=== PATIENT | female | born 1980 | race Caucasian/White ===

== ENCOUNTER 2020-07-06 08:34 | Outpatient (REF) | payer OTHER, SELFPAY ==
[2020-07-06 11:03] LABS: MANUAL DIFF FLAG NO
[2020-07-06 11:15] LABS: Basophils Percent Auto 0.7 % (0-2); Eosinophils Absolute Auto 0.1 X10*3/uL (0.0-0.4); Eosinophils Percent Auto 1.5 % (0-4); Hematocrit 45.1 % (37-47); Hemoglobin 14.6 g/dl (12.0-16.0); Imm Gran Abs Auto 0.01 X10*3/uL (0.00-0.03); Imm Gran Pct Auto 0.2 % (0.0-0.4); Lymphocytes Absolute Auto 1.6 X10*3/uL (1.2-4.9); Lymphocytes Percent Auto 35.3 % (20-40); Mean Corpuscular HGB Conc 32.4 g/dl (31.0-35.0); Mean Corpuscular Hemoglobin 30.6 pg (27.0-33.0); Mean Corpuscular Volume 94.5 fL (80-98); Mean Platelet Volume 11.4 fL (9.4-12.3); Monocytes Absolute Auto 0.4 X10*3/uL (0.1-1.2); Monocytes Percent Auto 8.3 % (2-11); Neutrophils Absolute Auto 2.5 X10*3/uL (2.0-8.3); Platelet Count 234 X10*3/uL (160-400); Red Blood Count 4.77 X10*6/uL (4.20-5.50); Red Cell Distribution Width 11.9 % (11.0-16.0); White Blood Count 4.6 X10*3/uL (4.8-10.8)
[2020-07-06 11:38] LABS: Alanine Aminotransferase 41 U/L (0-31); Albumin Level 4.4 g/dL (3.5-5.0); Alkaline Phosphatase 95 U/L (39-117); Aspartate Amino Transferase 10 U/L (5-31); Bilirubin Total 0.5 mg/dL (0.0-1.0); Blood Urea Nitrogen 14 mg/dL (9-16); Calcium 8.8 mg/dL (8.4-10.2); Cholesterol 175 mg/dL; Estimated Glomerular Filt Rate > 60; Glucose Fasting 97 mg/dL (60-99); HDL Cholesterol 48 mg/dL; LDL Cholesterol Calculated 105 mg/dl; Total Protein 7.1 g/dL (6.5-8.0); Triglycerides 113 mg/dL
[2020-07-06 11:55] LABS: Anion Gap 10 (12-20); Carbon Dioxide 29 mmol/L (22-29); Chloride 107 mmol/L (96-108); Potassium 4.2 mmol/L (3.3-5.1); Sodium 142 mmol/L (135-145)
[2020-07-06 11:59] LABS: TSH reflex Free T4 1.25 uIU/mL (0.32-4.0); Vitamin D 25-OH Total 19.6 ng/mL (>30)
== END 2020-07-06 08:35 | disposition home or self-care (01) ==
LOC: HO.HMGCLDS 08:34
PROVIDERS: PCP Internal Medicine; Visit Provider Internal Medicine
DX: Z00.01 Encounter for general adult medical examination with abnormal findings (principal); E66.9 Obesity, unspecified
CPT/HCPCS: 36415; 80053; 80061; 82306; 84443; 85025

== ENCOUNTER 2020-07-17 14:45 | Outpatient (REF) | payer OTHER, SELFPAY ==
[2020-07-17 17:48] LABS: Thyroid Stimulating Hormone 0.71 uIU/mL (0.32-4.0)
[2020-07-18 09:02] LABS: DHEA Sulfate 226 mcg/dL (23-266)
[2020-07-23 12:12] LABS: Testosterone, Free 5.3 pg/mL (0.1-6.4); Testosterone, Total 26 ng/dL (2-45)
== END 2020-07-17 14:46 | disposition home or self-care (01) ==
LOC: HO.LAB 14:45
PROVIDERS: PCP Internal Medicine; Visit Provider Obstetrics & Gynecology
DX: Z01.419 Encounter for gynecological examination (general) (routine) without abnormal findings (principal); E28.2 Polycystic ovarian syndrome; F32.81 Premenstrual dysphoric disorder
CPT/HCPCS: 36415; 82627; 83498; 84402; 84403; 84443

== ENCOUNTER → 2020-07-31 11:34 | Outpatient (BNVA) | payer OTHER, SELFPAY | PROVIDERS: PCP Internal Medicine; Visit Provider Obstetrics & Gynecology ==

== ENCOUNTER 2020-08-14 12:25 | Outpatient (REF) | payer OTHER, SELFPAY ==
--- NOTE | ~2020-08-14 | XR_ITS ---
EXAMINATION: XR CHEST CLINICAL INFORMATION: Cough COMPARISON: Chest radiographs 03/03/2019, 01/16/2016 TECHNIQUE: 2 views of the chest were obtained. FINDINGS: The lungs are clear. There is no airspace consolidation or groundglass opacity. No hyperinflation. The costophrenic sulci are clear. The heart is normal in size. The hilar and mediastinal contours are unremarkable. No acute bony abnormality. XR/XR chest 2V IMPRESSION: Lungs clear.
== END 2020-08-14 12:26 | disposition home or self-care (01) ==
LOC: HO.HMGCX 12:25
PROVIDERS: PCP Internal Medicine; Visit Provider Nurse Practitioner Family
DX: R05 Cough (principal)
CPT/HCPCS: 71046

== ENCOUNTER 2020-09-18 11:11 | Outpatient (REF) | payer OTHER, SELFPAY ==
[2020-09-18 14:03] LABS: MANUAL DIFF FLAG NO
[2020-09-18 14:14] LABS: Basophils Percent Auto 0.7 % (0-2); Eosinophils Percent Auto 0.7 % (0-4); Hematocrit 46.7 % (37-47); Hemoglobin 14.9 g/dl (12.0-16.0); Imm Gran Abs Auto 0.02 X10*3/uL (0.00-0.03); Imm Gran Pct Auto 0.5 % (0.0-0.4); Lymphocytes Absolute Auto 1.2 X10*3/uL (1.2-4.9); Lymphocytes Percent Auto 26.1 % (20-40); Mean Corpuscular HGB Conc 31.9 g/dl (31.0-35.0); Mean Corpuscular Hemoglobin 30.4 pg (27.0-33.0); Mean Corpuscular Volume 95.3 fL (80-98); Mean Platelet Volume 11.2 fL (9.4-12.3); Monocytes Absolute Auto 0.3 X10*3/uL (0.1-1.2); Neutrophils Absolute Auto 2.9 X10*3/uL (2.0-8.3); Platelet Count 256 X10*3/uL (160-400); Red Cell Distribution Width 12.8 % (11.0-16.0); White Blood Count 4.4 X10*3/uL (4.8-10.8)
[2020-09-18 14:23] LABS: Anion Gap 12 (12-20); Blood Urea Nitrogen 14 mg/dL (9-16); Calcium 9.6 mg/dL (8.4-10.2); Carbon Dioxide 26 mmol/L (22-29); Chloride 106 mmol/L (96-108); Estimated Glomerular Filt Rate > 60; Glucose Random 89 mg/dL (60-115); Potassium 3.9 mmol/L (3.3-5.1); Sodium 140 mmol/L (135-145)
[2020-09-18 14:28] LABS: D Dimer < 200 NG/ML
== END 2020-09-18 11:12 | disposition home or self-care (01) ==
LOC: HO.HMGCLDS 11:11
PROVIDERS: PCP Internal Medicine; Visit Provider Nurse Practitioner Family
DX: R05 Cough (principal)
CPT/HCPCS: 36415; 80048; 85025; 85379

== ENCOUNTER 2021-01-02 16:33 | Outpatient (REF) | payer OTHER, SELFPAY | END 2021-01-02 16:34 | disposition home or self-care (01) | LOC: HO.LNP 16:33 | PROVIDERS: Visit Provider Internal Medicine | DX: J06.9 Acute upper respiratory infection, unspecified (principal); Z20.822 Contact with and (suspected) exposure to COVID-19 | CPT/HCPCS: U0003; U0005 ==

== ENCOUNTER 2021-03-05 09:47 | Outpatient (REF) | payer OTHER, SELFPAY ==
--- NOTE | ~2021-03-05 | XR_ITS ---
EXAMINATION: XR CHEST CLINICAL INFORMATION: Cough COMPARISON: Chest radiographs 08/14/2020, 03/03/2019 TECHNIQUE: 2 views of the chest were obtained. FINDINGS: The lungs are clear. There is no airspace consolidation or groundglass opacity or effusion. No hyperinflation. The heart is normal in size. The costophrenic sulci are well-defined. The hilar and mediastinal contours are normal. Bony structures are unremarkable. XR/XR chest 2V IMPRESSION: Unremarkable examination.
== END 2021-03-05 09:48 | disposition home or self-care (01) ==
LOC: HO.HMGCX 09:47
PROVIDERS: PCP Internal Medicine; Visit Provider Physician Assistant Medical
DX: J06.9 Acute upper respiratory infection, unspecified (principal); R05.9 Cough, unspecified
CPT/HCPCS: 71046

== ENCOUNTER 2021-03-05 11:43 | Outpatient (REF) | payer OTHER, SELFPAY ==
[2021-03-05 13:13] LABS: Influenza A PCR NEGATIVE (Negative); Influenza B PCR NEGATIVE (Negative); Resp Syncy Virus RNA Qual PCR NEGATIVE (Negative); SARS COV2 PCR INHOUSE NEGATIVE (Negative)
== END 2021-03-05 11:44 | disposition home or self-care (01) ==
LOC: HO.LNP 11:43
PROVIDERS: Physician Assistant Medical; Visit Provider Internal Medicine
DX: J06.9 Acute upper respiratory infection, unspecified (principal); R05.9 Cough, unspecified; Z20.822 Contact with and (suspected) exposure to COVID-19
CPT/HCPCS: 0241U

== ENCOUNTER 2021-04-15 08:53 | Outpatient (REF) | payer OTHER, SELFPAY ==
--- NOTE | 2021-04-15 11:24 | PFT_ITS ---
INDICATION: Cough. SPIROMETRY: The FEV1 to FVC of 88% with an FEV1 of 3.39 L, which is 105% predicted, an FVC of 3.87 L. She is 98% predicted no significant response to bronchodilators noted. Maximum voluntary ventilation 116% predicted. LUNG VOLUMES: Total lung capacity 84% predicted with an expiratory reserve volume of 99% predicted. DIFFUSION CAPACITY: DLCO 91% predicted. Flow volume loop appears to have a normal inspiratory and expiratory flow pattern without any dynamic obstructions. INTERPRETATION: No obstructive nor restrictive ventilatory defects identified. Normal maximum voluntary ventilation. No evidence of any response to bronchodilators noted. The patient does have a low normal total lung capacity, which is likely secondary to her elevated BMI. Although, occult interstitial lung conditions cannot be ruled out. Her diffusion capacity is within normal limits. If asthma is in the differential, methacholine challenge may be helpful in assessing for hyper-reactive airways, otherwise clinical correlation warranted. MD MOJGAN Vale/MODL / [id number]
== END 2021-04-15 08:54 | disposition home or self-care (01) ==
LOC: HO.RESP 08:53
PROVIDERS: PCP Internal Medicine; Visit Provider Internal Medicine
DX: R05.9 Cough, unspecified (principal); R09.82 Postnasal drip; Z91.09 Other allergy status, other than to drugs and biological substances
CPT/HCPCS: 94060; 94727; 94729

== ENCOUNTER 2022-04-02 12:08 | Outpatient (REF) | payer OTHER, SELFPAY ==
[2022-04-02 16:57] LABS: CT PCR NOT DETECTED (Not Detect.); NG PCR NOT DETECTED (Not Detect.)
[2022-04-05 22:04] LABS: HPV mRNA E6/E7 Not Detected (Not Detected)
== END 2022-04-02 12:09 | disposition home or self-care (01) ==
LOC: HO.LNP 12:08
PROVIDERS: Visit Provider Obstetrics & Gynecology
DX: N93.9 Abnormal uterine and vaginal bleeding, unspecified (principal); Z11.3 Encounter for screening for infections with a predominantly sexual mode of transmission
CPT/HCPCS: 87491; 87591; 87624; 88142

== ENCOUNTER 2022-04-03 09:40 | Outpatient (REF) | payer OTHER, SELFPAY ==
[2022-04-03 10:35] LABS: Hematocrit 49.1 % (37.0-47.0); Hemoglobin 16.1 g/dl (12.0-16.0); Mean Corpuscular HGB Conc 32.8 g/dl (31.0-35.0); Mean Corpuscular Hemoglobin 30.4 pg (27.0-33.0); Mean Corpuscular Volume 92.8 fL (80.0-98.0); Mean Platelet Volume 10.8 fL (9.4-12.3); Platelet Count 265 X10*3/uL (160-400); Red Blood Count 5.29 X10*6/uL (4.20-5.50); Red Cell Distribution Width 12.1 % (11.0-16.0); White Blood Count 6.1 X10*3/uL (4.8-10.8)
[2022-04-03 11:09] LABS: HCG Quantitative < 2 mIU/mL; TSH reflex Free T4 0.93 uIU/mL (0.32-4.0)
== END 2022-04-03 09:41 | disposition home or self-care (01) ==
LOC: HO.LAB 09:40
PROVIDERS: PCP Internal Medicine; Visit Provider Obstetrics & Gynecology
DX: N93.9 Abnormal uterine and vaginal bleeding, unspecified (principal)
CPT/HCPCS: 36415; 84443; 84702; 85027

== ENCOUNTER 2022-04-04 11:00 | Outpatient (REF) | payer OTHER, SELFPAY ==
--- NOTE | ~2022-04-04 | US_ITS ---
EXAMINATION: US PELVIS COMPLETE CLINICAL INFORMATION: Abnormal uterine bleeding. COMPARISON: None TECHNIQUE: Transabdominal and transvaginal imaging was performed. FINDINGS: The uterus is of normal size and echogenicity measuring 7.7 x 4.4 x 5.3 cm. A regular homogeneous endometrium is identified measuring 0.6 cm. Intrauterine device in place. Nabothian cysts in the cervix. Both ovaries are of normal size and echogenicity. The right measures 3.0 x 1.0 x 2.5 cm for a volume of 3.9 mL. The left measures 3.0 x 1.7 x 2.3 cm for a volume of 6.1 mL. There is no pelvic free fluid. US/US pelvic and transvaginal IMPRESSION: Intrauterine device in place. Otherwise unremarkable pelvic ultrasound.
== END 2022-04-04 11:01 | disposition home or self-care (01) ==
LOC: HO.US 11:00
PROVIDERS: PCP Internal Medicine; Visit Provider Obstetrics & Gynecology
DX: N93.9 Abnormal uterine and vaginal bleeding, unspecified (principal)
CPT/HCPCS: 76830; 76856

== ENCOUNTER 2022-05-20 11:25 | Outpatient (REF) | payer OTHER, SELFPAY | END 2022-05-20 11:26 | disposition home or self-care (01) | LOC: HO.LNP 11:25 | PROVIDERS: PCP Internal Medicine; Visit Provider Obstetrics & Gynecology | DX: N93.9 Abnormal uterine and vaginal bleeding, unspecified (principal) | CPT/HCPCS: 58100; 81025; 88305 ==

== ENCOUNTER → 2022-06-03 11:19 | Outpatient (BNVA) | payer OTHER, SELFPAY | PROVIDERS: Visit Provider Obstetrics & Gynecology | DX: Z13.89 Encounter for screening for other disorder (principal) ==

== ENCOUNTER 2022-06-20 10:09 | Outpatient (AMB) | payer OTHER, SELFPAY ==
--- NOTE | 2022-06-20 10:02 | A.OFFPC_ITS ---
Vital Signs 06/20/22 10:08 Height 5 ft 6 in Weight 247 lb BMI 39.9 BP 110/80 Blood Pressure Location Lt brachial Position Sitting Pulse 93 Pulse Source Pulse Oximeter Pulse Oximetry (%) 98 Oxygen Delivery Method Room Air Intake Visit Reasons: Swelling glands Intake Note: Pt is here today c/o swollen glands x4days Allergies strawberry [STRAWBERRY] Allergy (Mild, Verified 06/20/22 10:22) THROAT SCRATCHY AND FACE BLOTCHED Medication List - Last Reconciled 06/20/22 by Mery Abrams MD albuterol sulfate 90 mcg/actuation (ProAir HFA) 2 puffs inhalation Q4-6H PRN albuterol sulfate 90 mcg/actuation 2 puffs inhalation Q6H PRN benzonatate 100 mg PO TID PRN doxycycline hyclate 100 mg PO BID 7 days fluoxetine 10 mg PO DAILY fluticasone propionate 50 mcg/actuation 1 spray intranasal DAILY levonorgestrel (Mirena) intrauterine multivitamin 1 tab PO DAILY prednisone 40 mg (2 x 20 mg) PO DAILY 5 days spironolactone 100 mg PO DAILY Tobacco use date assessed: 06/20/22 [facility] Medical History (Updated 06/20/22 @ 10:31 by Mery Abrams MD) Environmental allergies Obesity PCOS (polycystic ovarian syndrome) PMDD (premenstrual dysphoric disorder) Postnasal drip Streptococcal sore throat Vitamin D deficiency Surgical History History of Hx of dilation and curettage Family History (Updated 06/20/22 @ 10:08 by Lin Jimenes [facility]) Father Diabetes mellitus Hypertension Lung cancer Mother Diabetes mellitus Hypertension Colon cancer Social History Housing: House Alcohol intake: current Patient Tobacco Use Status: Never used Tobacco e-Cigarette/Vaping Use: Never Used Current occupational status: employed Gender identity: Female Cognitive needs: No Hearing needs: No Vision needs: No Female Reproductive History Menstrual Age of Menarche: 14 Questionnaire Thrive Questionnaire Date Thrive assessed: 03/08/21 AUDIT C Alcohol Use Questionnaire (AUDIT-C) 1. How often do you have a drink containing alcohol?: Monthly or less 2. How many drinks containing alcohol do you have on a typical day when you are drinking?: 1 or 2 3. How often do you have six or more drinks on one occasion?: Never Total Score: 1 ZARA-7 AMB Questionnaire ZARA-7 Date ZARA - 7 assessed: 03/08/21 Source: Developed by Drs. Odell Du, Mary Palacios, Luis Saez and colleagues, with an educational reji from [employer]. Physical exam (Primary Care) Vital Signs: Last Vital Signs Pulse 93 06/20/22 10:08 BP 110/80 06/20/22 10:08 Pulse Ox 98 06/20/22 10:08 Oxygen Delivery Method Room Air 06/20/22 10:08 BMI result Body Mass Index 39.9 Tobacco/Smoking Status: Tobacco use Status Tobacco use date assessed 06/20/22 06/20/22 10:10 Patient Tobacco Use Status Never used Tobacco 06/20/22 10:04 e-Cigarette/Vaping Use Never Used 06/20/22 10:10 Thrive Assessment: Date of Thrive Assessment Date Thrive assessed 03/08/21 06/20/22 10:04 Results AMB Rapid Strep AMB Rapid Strep Positive Last Edit by Lin Jimenes CMA on 06/20/22 10:12 Results Reviewed Results Reviewed: Laboratory Last Values Strep Scn Rapid Clinic Positive 06/20/22 10:10 Assessment and Plan Assessment & Plan (1) Streptococcal sore throat: Code(s): J02.0 - Streptococcal pharyngitis Plan Started on prescription for penicillin V 500 mg per tablet to take 1 every 12 hours for 10 days. Advised patient that she is no longer continues after 24 hours on the antibiotic. May continue with salt water gargles, eat popsicles to help numb the throat. Call if no improvement of symptoms after 24 hours on antibiotic on antibiotic Orders: Orders AMB Rapid Strep Screen Today Z13.9 - Encounter for screening, unspecified Coding Level of Care Code Est Pt Level 3 (79678) Diagnoses Streptococcal sore throat J02.0
[2022-06-20 10:08] VITALS: BP 110/80; PULSE 93; O2SAT 98; BMI 39.9
== END 2022-06-20 10:53 | disposition home or self-care (01) ==
PROVIDERS: PCP Internal Medicine; Visit Provider Internal Medicine
DX: J02.0 Streptococcal pharyngitis (principal)
CPT/HCPCS: 99499

== ENCOUNTER 2024-03-02 12:46 | Outpatient (REF) | payer OTHER, SELFPAY ==
[2024-03-02 17:32] LABS: Influenza A PCR NEGATIVE (Negative); Influenza B PCR NEGATIVE (Negative); Resp Syncy Virus RNA Qual PCR NEGATIVE (Negative); SARS COV2 PCR INHOUSE NEGATIVE (Negative)
== END 2024-03-02 12:47 | disposition home or self-care (01) ==
LOC: HO.LNP 12:46
PROVIDERS: PCP Internal Medicine; Visit Provider Registered Nurse
DX: J06.9 Acute upper respiratory infection, unspecified (principal)
CPT/HCPCS: 0241U

== ENCOUNTER 2024-03-02 12:46 | Outpatient (AMB) | payer OTHER, SELFPAY ==
--- NOTE | 2024-03-02 14:00 | MHC.OFFWIV ---
Intake Vital Signs 03/02/24 14:10 Weight 230 lb BP 122/80 Blood Pressure Location Lt brachial Position Sitting Pulse 99 Pulse Source Pulse Oximeter Temp 98.5 F Temp Source Oral Pulse Oximetry (%) 97 Oxygen Delivery Method Room Air Intake Visit Reasons: EP- Vomiting, diarrhea, fever Intake Note: Patient here for chest congestion, vomitting, diarrhea and fevers which has been present since this past weekend. Patient Tobacco Use Status: Never used Tobacco Allergies strawberry [STRAWBERRY] Allergy (Mild, Verified 03/02/24 14:01) THROAT SCRATCHY AND FACE BLOTCHED Do you need a note to return to daycare/school/sports/work: Yes HPI EP- Vomiting, diarrhea, fever HPI Details This note is constructed using voice recognition software. While every effort has been made to ensure accuracy, home support worker errors may have been included. The patient is a 43 year old female who presents to the clinic today with vomiting, diarrhea, fever for the past 6 days. She notes that she started with gurgling in her stomach on Thursday morning, led to large amounts of vomiting and diarrhea overnight, which resolved on Thursday at which point she developed a fever, up to 102 with sinus congestion and cough. She has tested herself twice for COVID which has been negative. She denies any body aches, shortness of breath. [facility] Medical History Environmental allergies Obesity PCOS (polycystic ovarian syndrome) PMDD (premenstrual dysphoric disorder) Postnasal drip Streptococcal sore throat Vitamin D deficiency Surgical History History of Hx of dilation and curettage Family History Father Diabetes mellitus Hypertension Lung cancer Mother Diabetes mellitus Hypertension Colon cancer Social History Housing: House Alcohol intake: current Patient Tobacco Use Status: Never used Tobacco e-Cigarette/Vaping Use: Never Used Current occupational status: employed Gender identity: Female Cognitive needs: No Hearing needs: No Vision needs: No Female Reproductive History Menstrual Age of Menarche: 14 Review of Systems Const All systems reviewed & are unremarkable except as noted in HPI and below Physical Exam Vital Signs: Last Vital Signs Temp 98.5 F 03/02/24 14:10 Pulse 99 03/02/24 14:10 BP 122/80 03/02/24 14:10 Pulse Ox 97 03/02/24 14:10 Oxygen Delivery Method Room Air 03/02/24 14:10 Const General: cooperative, healthy appearing, comfortable and no acute distress Orientation/consciousness: patient oriented x3 Limitations: no limitations HEENT Head: Yes normal to inspection Ears: hearing grossly normal bilaterally, external ears normal and TM's normal bilaterally General nose exam: Normal external nose present, Normal nares present and No nasal discharge present Face and sinus: Yes normal facial exam and Yes sinuses nontender Mouth: Normal oral and palatal mucosa present and moist mucous membranes Throat: Yes tonsils normal, Yes uvula midline and Yes posterior oropharynx abnormal (Erythema) Eyes General: appearance normal, both eyes and all related structures Neck Neck: Yes normal visual inspection Resp Effort & Inspection: normal respiratory effort, able to speak in complete sentences, Actively coughing, no respiratory distress, not tachypneic, no tripod positioning and no use of accessory muscles Auscultation: clear to auscultation bilaterally Cardio Jugular venous distension: no JVD Rate: regular rate Rhythm: regular rhythm Heart sounds: S1 normal heart sound present, S2 normal heart sound present, no click, no gallops, no murmurs and no rubs Bruits: no abdominal aortic bruits GI Inspection: Yes normal to inspection Palpation (GI): No Abdominal aortic bruit present, Soft to palpation and nontender Percussion: Yes normal to percussion Auscultation: normal bowel sounds Skin General skin exam: no rashes or lesions noted, elasticity normal and turgor normal Neuro General: patient oriented x3 Extrem General: Yes normal to inspection and Yes no clubbing, cyanosis or edema Assessment & Plan Assessment & Plan (1) URI (upper respiratory infection): Code(s): J06.9 - Acute upper respiratory infection, unspecified Qualifiers: URI type: unspecified URI Qualified Code(s): J06.9 - Acute upper respiratory infection, unspecified Plan: Viral swab obtained to rule out Covid and flu based on symptoms. Advised mask wearing while symptomatic and quarantine per current CDC guidelines. Reviewed at home support methods including hydration, humidification, vix vapor rub, sinus rinse. Discussed treatment with antiviral therapy with paxlovid or tamiflu including appropriate use and side effects, and need to start medication within 5 day of symptom onset, preferably within 48 hours of symptom onset. Patient is outside of the treatment window for this. Benzonatate sent for cough suppressant, advised trial Mucinex for symptom management. Advised follow up with worsening symptoms such as dyspnea at rest, which would require emergent evaluation. Plan See above for full details and plan. Orders: Orders SARS-CoV2/FLU/RSV Today J06.9 - Acute upper respiratory infection, unspecified Medications: New benzonatate 100 mg PO TID 5 days PRN 15 caps 0RF Cough Coding Level of Care Code Est Pt Level 3 (74289) Diagnoses Upper respiratory tract infection, unspecified type J06.9 URI type: unspecified URI
[2024-03-02 14:10] VITALS: BP 122/80; PULSE 99; TEMP 36.9; O2SAT 97
== END 2024-03-02 14:54 | disposition home or self-care (01) ==
PROVIDERS: PCP Internal Medicine; Visit Provider Registered Nurse
DX: J06.9 Acute upper respiratory infection, unspecified (principal)

== ENCOUNTER → 2024-03-30 14:01 | Outpatient (BNVA) | payer OTHER, SELFPAY | PROVIDERS: PCP Internal Medicine; Visit Provider Physician Assistant | DX: S60.022A Contusion of left index finger without damage to nail, initial encounter (principal); X58.XXXA Exposure to other specified factors, initial encounter | CPT/HCPCS: 73130; 99204 ==

== ENCOUNTER 2025-01-18 10:39 | Outpatient (AMB) | payer OTHER, SELFPAY ==
[2025-01-18 10:41] VITALS: BP 114/70; PULSE 71; TEMP 36.6; O2SAT 97; BMI 37.1
--- NOTE | 2025-01-18 10:41 | AM.OFFWIN_ITS ---
Intake Vital Signs 01/18/25 10:41 Height 5 ft 6 in Weight 230 lb BMI 37.1 BP 114/70 Blood Pressure Location Lt brachial Position Sitting Pulse 71 Pulse Source Pulse Oximeter Temp 97.9 F Temp Source Oral Pulse Oximetry (%) 97 Oxygen Delivery Method Room Air Intake Visit Reasons: EP Hit head @7am, fatigue Intake Note: Patient presents with c-spine pain/tension, upper forehead tension and fatigue after hitting the top of her head this morning on floor beam heading into basement Patient Tobacco Use Status: Never used Tobacco Allergies strawberry (STRAWBERRY) Allergy (Mild, Verified 01/18/25 10:44) THROAT SCRATCHY AND FACE BLOTCHED Do you need a note to return to daycare/school/sports/work: Yes HPI HPI Comments History of Present Illness Details History of Present Illness - The patient is a 44-year-old female pr esenting with head pain and fatigue following a head injury. - The injury occurred this am when the p anson hit her head on a stair while ascending, resulting in immediate pain and symptoms of nausea, light sensitivity, and neck pain. - The incident happened around 7:00 AM, and the patient did not lose consciousness but experienced a brief moment of disorientation. 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 - The patient reports a pain level of 4. 5 out of 10, with no visible hematomas or bumps on the head. - The patient consulted with the school nurse, who advised seeking medical evaluation. - She has some nausea but has not vomite d. - She has no blurry or double vision. - She denies CP, SOB, abd pain, back mercedes n, weakness, unilateral weakness, slurred speech, or confusion. - She denies blood thinners. Physical Exam General: Cooperative, healthy appearing, comfortable, no acute distress and well developed Orientation: Patient oriented x3 Limitations: No limitations Head: Normal to inspection, but patient reports pain at the back of the head Eyes: PERRLA, EOMI. No nystagmus noted. Ears: Hearing grossly normal bilaterally. Nose: Normal external nose present Face and sinus: Normal facial exam Neck: Normal visual inspection, Yes full ROM Respiratory: Normal respiratory effort and able to speak in complete sentences. Clear to auscultation bilaterally Cardiovascular: Regular rate and rhythm. Normal S1 and S2 GI: Normal to inspection. Soft to palpation and nontender, non-distended. No guarding noted. No rebound tenderness noted. Skin: No rashes or lesions noted Neuro: Patient oriented x3, CN II-XII intact Extremities: Normal to inspection, strength and coordination intact, 5/5 on the UE and LE bilaterally. Patient was informed and verbally consented to the use of an ambient scribe for clinic note documentation during this visit. [facility] Medical History Environmental allergies Obesity PCOS (polycystic ovarian syndrome) PMDD (premenstrual dysphoric disorder) Postnasal drip Streptococcal sore throat Vitamin D deficiency Surgical History History of Hx of dilation and curettage Family History Father Diabetes mellitus Hypertension Lung cancer Mother Diabetes mellitus Hypertension Colon cancer Social History Housing: House Alcohol intake: current Patient Tobacco Use Status: Never used Tobacco e-Cigarette/Vaping Use: Never Used Current occupational status: employed Gender identity: Female Cognitive needs: No Hearing needs: No Vision needs: No Female Reproductive History Menstrual Age of Menarche: 14 Review of Systems Const All systems reviewed & are unremarkable except as noted in HPI and below Physical Exam Vital Signs: Last Vital Signs Temp 97.9 F 01/18/25 10:41 Pulse 71 01/18/25 10:41 BP 114/70 01/18/25 10:41 Pulse Ox 97 01/18/25 10:41 Oxygen Delivery Method Room Air 01/18/25 10:41 BMI result Body Mass Index 37.1 Office Meds ketorolac 30 mg/mL (1 mL) injection solution Performing Provider: Ashley Meeks PA-C [place] [facility] [place] [facility] Administered by: Ashley Meeks PA-C on 01/18/25 11:18 Dose Route Admin Location Dispensed Lot Number Expiration Date NDC Tiler 30 mg IM 1 mL [id number] 03/26/25 44862-955-12 [employer] Total Dispensed Waste 1 mL 0 % ondansetron 4 mg disintegrating tablet Performing Provider: Ashley Meeks PA-C [place]forming [place] [facility] [facility] [place] [facility] Administered by: Ashley Meeks PA-C on 01/18/25 11:18 Dose Route Admin Location Dispensed Lot Number Expiration Date NDC Tiler 4 mg translingual 1 tab Assessment & Plan Assessment & Plan (1) Head injury: Code(s): S09.90XA - Unspecified injury of head, initial encounter Qualifiers: Encounter type: initial encounter Qualified Code(s): S09.90XA - Unspecified injury of head, initial encounter Plan Most likely contusion after a head injury vs Post-Concussion Syndrome plan - Monitor symptoms for worsening over the next 24-48 hours, including vomiting, severe headache, or vision changes. - Consider CT scan if symptoms worsen significantly. - Administer Toradol for pain relief, avoiding sedative effects. - Also zofran as needed for nausea - avoid using computer screens and phones - follow up with PCP Orders: Orders AMB Ketorolac Injection Today M53.3 - Sacrococcygeal disorders, not elsewhere classified AMB Ondansetron Adult Dose Today S09.90XA - Unspecified injury of head, initial encounter Medications: New ondansetron 4 mg PO Q8H PRN 10 tabs 0RF nausea and vomiting Coding Level of Care Code Est Pt Level 4 (22123) Diagnoses Injury of head, initial encounter S09.90XA Encounter type: initial encounter
== END 2025-01-18 11:20 | disposition home or self-care (01) ==
PROVIDERS: PCP Internal Medicine; Visit Provider Physician Assistant Medical
DX: S09.90XA Unspecified injury of head, initial encounter (principal); M53.3 Sacrococcygeal disorders, not elsewhere classified

== ENCOUNTER → 2025-01-18 10:39 | Outpatient (BNVA) | payer OTHER, SELFPAY | PROVIDERS: PCP Internal Medicine; Visit Provider Physician Assistant Medical | DX: M53.3 Sacrococcygeal disorders, not elsewhere classified (principal); S09.90XA Unspecified injury of head, initial encounter; W10.9XXA Fall (on) (from) unspecified stairs and steps, initial encounter; Y93.9 Activity, unspecified; Y92.9 Unspecified place or not applicable; Y99.9 Unspecified external cause status | CPT/HCPCS: 96372; J1885 ==